=== PATIENT | female | born 2000 | race Caucasian/White ===

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

== ENCOUNTER 2022-02-02 10:44 | Emergency (ER) | payer SELFPAY ==
[2022-02-02 11:03] VITALS: BP 123/80; PULSE 110; RESP 16; TEMP 36.3; O2SAT 99; BMI 22.0
--- NOTE | 2022-02-02 11:22 | ED_ITS ---
HPI - Female Genitourinary General: Chief complaint: Abdominal Pain Stated complaint: ABD Pain, Nausia Time Seen by Provider: 02/02/22 11:08 History of Present Illness: Patient presents with discomfort down pelvic area. 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 She has had UTI in past and she said is very consistent with that patient denies any vaginal discharge or pain with intercourse. Patient had a chlamydia test last week and was negative. Patient denies any other problems. She denies any vomiting or fever but she does have some nausea. Associated symptoms: Reports abdominal pain (Lower aspect pelvic); Deny headache(s) or nausea Review of Systems Const: Denies: fever(s), chills or body aches Eyes: Denies: eye discomfort ENMT: Denies: throat pain Card: Denies: chest pain Resp: Denies: dyspnea GI: Reports: abdominal pain (Lower aspect pelvic); Denies: nausea or vomiting : Reports: dysuria, urinary frequency, urinary urgency and oliguria Skin/Breast: Denies: rash Neuro: Denies: headache(s) Psych: Denies: depression or suicidal ideation [facility] ED PFSH: Medical History (Updated 02/02/22 @ 12:33 by JOSÉ MIGUEL Phillips) No pertinent past medical history Surgical History (Updated 06/11/20 @ 13:56 by Rosalee Barlow) No pertinent past surgical history Physical Exam Const: COMMON NORMALS: no acute distress, patient oriented x3 and alert HENMT: COMMON NORMALS: normocephalic and external ears normal HEAD & SCALP: normocephalic EXTERNAL EAR: Yes external ears normal Eye: COMMON NORMALS: EOMs intact bilaterally Neck/C-Spine: COMMON NORMALS: no JVD Resp: COMMON NORMALS: normal respiratory effort and No use of accessory muscles Cardio: COMMON NORMALS: no JVD GI: INSPECTION: Yes normal to inspection OTHER: Tenderness in lower abdomen pelvic area. Extremity: COMMON NORMALS: normal to inspection and full ROM Neuro: COMMON NORMALS: patient oriented x3 SENSORIUM/ORIENTATION: Yes alert Psych: COMMON NORMALS: mental status grossly normal Skin: COMMON NORMALS: no rashes or lesions noted GENERAL SKIN EXAM: no rashes or lesions noted Course Vital Signs: Vital signs: Vital Signs Temperature 97.4 F L 02/02/22 11:03 Pulse Rate 110 H 02/02/22 11:03 Respiratory Rate 16 02/02/22 11:03 Blood Pressure 123/80 02/02/22 11:03 Pulse Oximetry 99 02/02/22 11:03 MDM - Female Medical Decision Making Uncomplicated UTI Lab Data Laboratory Results HCG, Qual Negative (Negative) 02/02/22 11:32 Urine Color Yellow (Yellow) 02/02/22 11:32 Urine Appearance Hazy (CLEAR) A 02/02/22 11:32 Urine pH 5 (5-7) 02/02/22 11:32 Ur Specific [place] 1.025 (1.005-1.030) 02/02/22 11:32 Urine Protein Neg (Negative) 02/02/22 11:32 Urine Glucose (UA) Norm (Normal) 02/02/22 11:32 Urine Ketones Negative (Negative) 02/02/22 11:32 Urine Blood Neg (Negative) 02/02/22 11:32 Urine Nitrate Negative (Negative) 02/02/22 11:32 Urine Bilirubin Neg (Negative) 02/02/22 11:32 Urine Urobilinogen Norm mg/dL (Negative) 02/02/22 11:32 Ur Leukocyte Esterase 2+ (Negative) H 02/02/22 11:32 Urine RBC None /hpf (0-2) 02/02/22 11:32 Urine WBC 55-80 /hpf (0-5) H 02/02/22 11:32 Ur Squamous Epith Cells 15-25 /hpf (0-5) H 02/02/22 11:32 Ur Transition Epith Cell 0-4 /hpf 02/02/22 11:32 Amorphous Sediment Not Reportable 02/02/22 11:32 Urine Bacteria 4+ /hpf (NONE) H 02/02/22 11:32 Urine Mucus 1+ /hpf 02/02/22 11:32 Discharge Plan Discharge Patient Disposition: Home Clinical Impression: UTI (urinary tract infection) Condition: Stable Prescriptions: New fosfomycin tromethamine 3 gram packet 1 packet PO ONCE Qty: 1 0RF Discharge Orders: Discharge ED (Routine); Ordered 02/02/22 Ordered By: Felix Francisco Discharge Diet: Usual diet Discharge Activity: Increase activity as tolerated Patient Instructions: Urinary Tract Infection in Women (DC) Activity Restrictions/Additional Instructions: Follow-up with medical provider as directed. Take medications as prescribed. Return to the ER or your medical provider if condition worsens. Please read and understand discharge instructions. If any questions ask please. Follow-up in 1 week at your primary care provider office. And repeat urine sample to make sure that your infection is cleared up. Stand Alone Forms: Work/School Release Coding Level of Care Code ED Farm Operator for Abram Fwd Exam Comprehensive
[2022-02-02 11:43] LABS: HCG Qualitative Urine. Negative (Negative)
[2022-02-02 12:15] LABS: Add Urine Microscopic? YES; Bilirubin Urine Neg (Negative); Blood Urine Neg (Negative); Glucose Urine UA Norm (Normal); Ketones Urine Negative (Negative); Leukocyte Esterase Urine 2+ (Negative); Nitrate Urine Negative (Negative); Protein Urine Neg (Negative); Specific Gravity, Urine 1.025 (1.005-1.030); Urine Appearance Hazy (CLEAR); Urine Color Yellow (Yellow); Urobilinogen Urine Norm (Negative); pH Urine 5 (5-7)
[2022-02-02 12:16] LABS: Bacteria Urine 4+ /hpf; Squamous Epithelial Cell Urine 15-25 /hpf (0-5); Transitional Epi Cells Urine 0-4 /hpf; WBC Urine 55-80 /hpf (0-5)
[2022-02-02 12:17] LABS: Add Urine Culture? No; Mucus Urine 1+ /hpf
[2022-02-02 13:12] VITALS: BP 122/80; PULSE 88; RESP 16; O2SAT 99
== END 2022-02-02 13:16 | disposition home or self-care (01) ==
PROVIDERS: Emergency Provider Nurse Practitioner Family
DX: N39.0 Urinary tract infection, site not specified (principal)
CPT/HCPCS: 81001; 81025; 87491; 87591; 99282

== ENCOUNTER 2023-02-07 15:36 | Emergency (ER) | payer BC, MEDICAID, SELFPAY ==
[2023-02-07 15:59] VITALS: BP 118/80; PULSE 93; RESP 15; TEMP 36.7; O2SAT 99; BMI 26.7
--- NOTE | 2023-02-07 17:27 | ED_ITS ---
Documented by User: Chris Fletcher DO 02/08/23 09:09 HPI - Female Genitourinary General: Chief complaint: Urogenital-Female Stated complaint: pelvic pain Time Seen by Provider: 02/07/23 17:27 Source: patient Mode of arrival: ambulatory History of Present Illness: 22-year-old female presents to the emergency room with complaints of pelvic pain and discomfort. She had previously been on oral contraceptives she stopped it because she did not like the way it made her felt. She had seen her doctor who encouraged her to continue she seen another doctor today and they wrote a prescription for a different oral contraceptive. She has been off the initial 1 for approximately 4 to 5 days she began to have cramping and bleeding. She does not believe she is likely to be . Patient does report a history of polycystic ovarian syndrome. No fever sweats chills no abnormal vaginal discharge. MD elicited complaint: vaginal bleeding and pelvic pain Onset (ago): day(s) Severity: mild Female Urogenital Radiation: Non-Radiating Quality of pain: cramping Consistency: intermittent Vaginal discharge: none Vaginal bleeding: moderate Urinary symptoms: Dysuria, Flank Pain, Frequency and Urgency Exacerbating factors: none Relieving factors: none Associated symptoms: Reports nausea; Deny abdominal pain, short of breath, fevers/chills, headache(s), rash, seizu res, syncope, vaginal bleeding, vaginal discharge or weakness Treatment prior to arrival: none Review of Systems Const: Denies: fever(s), chills, body aches, change in appetite, fatigue or malaise ENMT: Denies: throat pain, ear or mastoid pain, nasal discharge or nasal congestion Card: Denies: syncope Resp: Denies: dyspnea, productive cough or non-productive cough GI: Reports: nausea; Denies: abdominal pain : Denies: vaginal discharge Skin/Breast: Denies: rash or pruritus Neuro: Denies: headache(s) PFSH ED PFSH: Medical History No pertinent past medical history Surgical History No pertinent past surgical history Family History Denies family history of Cervical cancer Colon cancer Ovarian cancer Diabetes Breast cancer Hypertension Uterine cancer Thyroid disease Stroke Physical Exam Const: GENERAL APPEARANCE: cooperative and comfortable ORIENTATION/CONSCIOUSNESS: Yes awake, Yes oriented to person, Yes oriented to place and Yes oriented to time HENMT: COMMON NORMALS: normocephalic, atraumatic and hearing grossly normal bilaterally HEAD & SCALP: normocephalic and atraumatic Resp: COMMON NORMALS: normal respiratory effort, No retractions, No use of accessory muscles and clear to auscultation bilaterally AUSCULTATION: clear to auscultation bilaterally Cardio: COMMON NORMALS: regular rate, regular rhythm and No murmurs present (Cardio) RATE: regular rate RHYTHM: regular rhythm GI: COMMON NORMALS: No hepatosplenomegaly present AUSCULTATION: Yes normoactive bowel sounds PALPATION: Yes Tenderness to palpation present (GI) (Mild suprapubic discomfort no guarding or rebound), No Guarding due to palpation present (GI) and Yes No hepatosplenomegaly present : SPECULUM EXAM - VAGINA: No vaginal bleeding OB/EXTERNAL & SPECULUM: No vaginal bleeding Extremity: COMMON NORMALS: normal to inspection, capillary refill normal, no clubbing, cyanosis or edema, no calf tenderness and no pedal edema Neuro: SENSORIUM/ORIENTATION: Yes oriented to person, Yes oriented to place and Yes oriented to time Skin: COMMON NORMALS: no rashes or lesions noted GENERAL SKIN EXAM: no rashes or lesions noted Course Vital Signs: Vital signs: Vital Signs Temperature 98.0 F 02/07/23 15:59 Pulse Rate 85 02/07/23 19:00 Respiratory Rate 16 02/07/23 19:00 Blood Pressure 127/85 02/07/23 19:00 Pulse Oximetry 99 02/07/23 19:00 Oxygen Delivery Ok thod 02/07/23 15:59 [facility] - Female Medical Decision Making Care signed out to Dr. Best at change of shift. See final notes for diagnosis and disposition. 22-year-old female checked out to me by Dr. Fletcher at shift change. This young lady stopped taking control a few days ago, and is having somewhat brisk, significant vaginal bleeding with pelvic cramping. No discharge. She was concerned given the level of bleeding, and the severity of cramping. Her CBC is normal. Hemoglobin is 14. Vitals are normal. She does not have a urinary tract infection. BMP is not remarkable. Liver enzymes are normal. This is likely a withdrawal bleed from stopping her control. She was offered medroxyprogesterone to stop the bleeding, but was told after she stops the medroxyprogesterone, she will have a withdrawal bleed that will be equivalent to the symptoms she is experiencing currently. She declined. She will be allowed discharged follow-up with her primary care Lab Data 02/07/23 18:15 02/07/23 18:15 Laboratory Results WBC 12.2 10^3/uL (4.5-13.0) 02/07/23 18:15 RBC 4.50 10^6/uL (4.1-5.3) 02/07/23 18:15 Hgb 14.0 g/dL (11.5-15.3) 02/07/23 18:15 Hct 41.5 % (37.0-47.0) 02/07/23 18:15 MCV 92.2 fl (81-99) 02/07/23 18:15 MCH 31.1 pg (28.0-34.0) 02/07/23 18:15 MCHC 33.7 g/dL (30.0-36.0) 02/07/23 18:15 RDW 12.2 % (12.1-15.1) 02/07/23 18:15 Plt Count 251 10^3/cmm (130-400) 02/07/23 18:15 MPV 11.2 fL (7.4-10.4) H 02/07/23 18:15 Neut % (Auto) 74.4 % 02/07/23 18:15 Lymph % (Auto) 16.3 % 02/07/23 18:15 Nye % (Auto) 8.6 % 02/07/23 18:15 Eos % (Auto) 0.2 % 02/07/23 18:15 Baso % (Auto) 0.2 % 02/07/23 18:15 Neut # (Auto) 9.06 10^3/uL (1.8-8.0) H 02/07/23 18:15 Lymph # (Auto) 2.0 10^3/uL (1.5-6.5) 02/07/23 18:15 Nye # (Auto) 1.1 10^3/uL (0.2-0.9) H 02/07/23 18:15 Eos # (Auto) 0.0 10^3/uL (0.0-0.8) 02/07/23 18:15 Baso # (Auto) 0.0 10^3/uL (0.0-0.1) 02/07/23 18:15 Nucleated RBC % (auto) 0 % 02/07/23 18:15 Nucleated RBCs # 0.0 /100WBC 02/07/23 18:15 Sodium 140 mmol/L (136-145) 02/07/23 18:15 Potassium 3.6 mmol/L (3.5-5.1) 02/07/23 18:15 Chloride 102 mmol/L (98-107) 02/07/23 18:15 Carbon Dioxide 22 mmol/L (22-29) 02/07/23 18:15 Anion Gap 19.6 (5-19) H 02/07/23 18:15 BUN 5 mg/dL (6-20) L 02/07/23 18:15 Creatinine 0.5 mg/dL (0.5-0.9) 02/07/23 18:15 GFR Calculation 157.3 mL/min (90-130) H 02/07/23 18:15 Glucose 85 mg/dL (65-115) 02/07/23 18:15 Calculated Osmolality 287 mOsm/kg (285-295) 02/07/23 18:15 Calcium 9.7 mg/dL (8.5-10.5) 02/07/23 18:15 HCG, Qual Negative (Negative) 02/07/23 17:21 Urine Color Colorless (Yellow) 02/07/23 19:07 Urine Appearance Clear (CLEAR) 02/07/23 19:07 Urine pH 6 (5-7) 02/07/23 19:07 Ur Specific Dillard 1.005 (1.005-1.030) 02/07/23 19:07 Urine Protein Neg (Negative) 02/07/23 19:07 Urine Glucose (UA) Norm (Normal) 02/07/23 19:07 Urine Ketones 1+ (Negative) H 02/07/23 19:07 Urine Blood Neg (Negative) 02/07/23 19:07 Urine Nitrate Negative (Negative) 02/07/23 19:07 Urine Bilirubin Neg (Negative) 02/07/23 19:07 Prot Sulfosalicylic Acd Cancelled 02/07/23 17:21 Urine Urobilinogen Neg mg/dL (Negative) 02/07/23 19:07 Ur Leukocyte Esterase Negative (Negative) 02/07/23 19:07 Urine RBC Cancelled 02/07/23 17:21 Urine WBC Cancelled 02/07/23 17:21 Ur Squamous Epith Cells Cancelled 02/07/23 17:21 Ur Transition Epith Cell Cancelled 02/07/23 17:21 Ur Renal Epithelial Cell Cancelled 02/07/23 17:21 Calcium Oxalate Crystal Cancelled 02/07/23 17:21 Uric Acid Crystals Cancelled 02/07/23 17:21 Triple Phos Crystals Cancelled 02/07/23 17:21 Other Crystals Cancelled 02/07/23 17:21 Amorphous Sediment Cancelled 02/07/23 17:21 Urine Bacteria Cancelled 02/07/23 17:21 Hyaline Casts Cancelled 02/07/23 17:21 Fine Granular Casts Cancelled 02/07/23 17:21 Coarse Granular Casts Cancelled 02/07/23 17:21 RBC Casts Cancelled 02/07/23 17:21 Other Casts Cancelled 02/07/23 17:21 Urine Mucus Cancelled 02/07/23 17:21 Urine Trichomonas Cancelled 02/07/23 17:21 Urine Yeast Cancelled 02/07/23 17:21 Urine Sperm Cancelled 02/07/23 17:21 Ur Oval Fat Bodies Cancelled 02/07/23 17:21 Discharge Plan Discharge Patient Disposition: Home Clinical Impression: Abnormal vaginal bleeding Condition: Stable Prescriptions: No Action drospirenone-ethinyl estradiol [KENNETH (28)] 3-0.02 mg tablet 1 tab PO DAILY norethindrone ac-eth estradiol [ ()] 1.5-30 mg-mcg tablet 1 tab PO DAILY Qty: 63 6RF Discharge Orders: Discharge ED (Routine); Ordered 02/07/23 Ordered By: Nigel Best Referrals: Marion Gibbs LPN [Primary Care Provider] - Patient Instructions: Abnormal (Dysfunctional) Uterine Bleeding (ED) Activity Restrictions/Additional Instructions: You are experiencing increasing vaginal bleeding because of the withdrawal of the hormones in your control pill. This is almost always self-limited. Return for worsening vaginal bleeding, soaking 1 pad per hour for more than 3 hours, fever greater than 100, vomiting liquids or medications, other concerning symptoms. Follow-up with your doctor. Coding Level of Care Code ED Maintenance Controller for Chg Fwd Documented by User: Nigel Best DO 02/08/23 14:19 HPI - Female Genitourinary General: Chief complaint: Urogenital-Female Stated complaint: pelvic pain Time Seen by Provider: 02/07/23 17:27 [facility] ED PFSH: Medical History No pertinent past medical history Surgical History No pertinent past surgical history Family History Denies family history of Cervical cancer Colon cancer Ovarian cancer Diabetes Breast cancer Hypertension Uterine cancer Thyroid disease Stroke Course Vital Signs: Vital signs: Vital Signs Temperature 98.0 F 02/07/23 15:59 Pulse Rate 85 02/07/23 19:00 Respiratory Rate 16 02/07/23 19:00 Blood Pressure 127/85 02/07/23 19:00 Pulse Oximetry 99 02/07/23 19:00 Oxygen Delivery Me thod 02/07/23 15:59 MDM - Female Medical Decision Making 22-year-old female checked out to me by Dr. Fletcher at shift change. This young lady stopped taking control a few days ago, and is having somewhat brisk, significant vaginal bleeding with pelvic cramping. No discharge. She was concerned given the level of bleeding, and the severity of cramping. Her CBC is normal. Hemoglobin is 14. Vitals are normal. She does not have a urina ry tract infection. BMP is not remarkable. Liver enzymes are normal. This is likely a withdrawal bleed from stopping her control. She was offered medroxyprogesterone to stop the bleeding, but was told after she stops the medroxyprogesterone, she will have a withdrawal bleed that will be equivalent to the symptoms she is experiencing currently. She declined. She will be allowed discharged follow-up with her primary care Lab Data 02/07/23 18:15 02/07/23 18:15 Laboratory Results WBC 12.2 10^3/uL (4.5-13.0) 02/07/23 18:15 RBC 4.50 10^6/uL (4.1-5.3) 02/07/23 18:15 Hgb 14.0 g/dL (11.5-15.3) 02/07/23 18:15 Hct 41.5 % (37.0-47.0) 02/07/23 18:15 MCV 92.2 fl (81-99) 02/07/23 18:15 MCH 31.1 pg (28.0-34.0) 02/07/23 18:15 MCHC 33.7 g/dL (30.0-36.0) 02/07/23 18:15 RDW 12.2 % (12.1-15.1) 02/07/23 18:15 Plt Count 251 10^3/cmm (130-400) 02/07/23 18:15 MPV 11.2 fL (7.4-10.4) H 02/07/23 18:15 Neut % (Auto) 74.4 % 02/07/23 18:15 Lymph % (Auto) 16.3 % 02/07/23 18:15 Nye % (Auto) 8.6 % 02/07/23 18:15 Eos % (Auto) 0.2 % 02/07/23 18:15 Baso % (Auto) 0.2 % 02/07/23 18:15 Neut # (Auto) 9.06 10^3/uL (1.8-8.0) H 02/07/23 18:15 Lymph # (Auto) 2.0 10^3/uL (1.5-6.5) 02/07/23 18:15 Nye # (Auto) 1.1 10^3/uL (0.2-0.9) H 02/07/23 18:15 Eos # (Auto) 0.0 10^3/uL (0.0-0.8) 02/07/23 18:15 Baso # (Auto) 0.0 10^3/uL (0.0-0.1) 02/07/23 18:15 Nucleated RBC % (auto) 0 % 02/07/23 18:15 Nucleated RBCs # 0.0 /100WBC 02/07/23 18:15 Sodium 140 mmol/L (136-145) 02/07/23 18:15 Potassium 3.6 mmol/L (3.5-5.1) 02/07/23 18:15 Chloride 102 mmol/L (98-107) 02/07/23 18:15 Carbon Dioxide 22 mmol/L (22-29) 02/07/23 18:15 Anion Gap 19.6 (5-19) H 02/07/23 18:15 BUN 5 mg/dL (6-20) L 02/07/23 18:15 Creatinine 0.5 mg/dL (0.5-0.9) 02/07/23 18:15 GFR Calculation 157.3 mL/min (90-130) H 02/07/23 18:15 Glucose 85 mg/dL (65-115) 02/07/23 18:15 Calculated Osmolality 287 mOsm/kg (285-295) 02/07/23 18:15 Calcium 9.7 mg/dL (8.5-10.5) 02/07/23 18:15 HCG, Qual Negative (Negative) 02/07/23 17:21 Urine Color Colorless (Yellow) 02/07/23 19:07 Urine Appearance Clear (CLEAR) 02/07/23 19:07 Urine pH 6 (5-7) 02/07/23 19:07 Ur Specific Dillard 1.005 (1.005-1.030) 02/07/23 19:07 Urine Protein Neg (Negative) 02/07/23 19:07 Urine Glucose (UA) Norm (Normal) 02/07/23 19:07 Urine Ketones 1+ (Negative) H 02/07/23 19:07 Urine Blood Neg (Negative) 02/07/23 19:07 Urine Nitrate Negative (Negative) 02/07/23 19:07 Urine Bilirubin Neg (Negative) 02/07/23 19:07 Prot Sulfosalicylic Acd Cancelled 02/07/23 17:21 Urine Urobilinogen Neg mg/dL (Negative) 02/07/23 19:07 Ur Leukocyte Esterase Negative (Negative) 02/07/23 19:07 Urine RBC Cancelled 02/07/23 17:21 Urine WBC Cancelled 02/07/23 17:21 Ur Squamous Epith Cells Cancelled 02/07/23 17:21 Ur Transition Epith Cell Cancelled 02/07/23 17:21 Ur Renal Epithelial Cell Cancelled 02/07/23 17:21 Calcium Oxalate Crystal Cancelled 02/07/23 17:21 Uric Acid Crystals Cancelled 02/07/23 17:21 Triple Phos Crystals Cancelled 02/07/23 17:21 Other Crystals Cancelled 02/07/23 17:21 Amorphous Sediment Cancelled 02/07/23 17:21 Urine Bacteria Cancelled 02/07/23 17:21 Hyaline Casts Cancelled 02/07/23 17:21 Fine Granular Casts Cancelled 02/07/23 17:21 Coarse Granular Casts Cancelled 02/07/23 17:21 RBC Casts Cancelled 02/07/23 17:21 Other Casts Cancelled 02/07/23 17:21 Urine Mucus Cancelled 02/07/23 17:21 Urine Trichomonas Cancelled 02/07/23 17:21 Urine Yeast Cancelled 02/07/23 17:21 Urine Sperm Cancelled 02/07/23 17:21 Ur Oval Fat Bodies Cancelled 02/07/23 17:21 Discharge Plan Discharge Patient Disposition: Home Clinical Impression: Abnormal vaginal bleeding Condition: Stable Prescriptions: No Action drospirenone-ethinyl estradiol [KENNETH (28)] 3-0.02 mg tablet 1 tab PO DAILY norethindrone ac-eth estradiol [ ()] 1.5-30 mg-mcg tablet 1 tab PO DAILY Qty: 63 6RF Discharge Orders: Discharge ED (Routine); Ordered 02/07/23 Ordered By: Nigel Best Referrals: Marion Gibbs LPN [Primary Care Provider] - Patient Instructions: Abnormal (Dysfunctional) Uterine Bleeding (ED) Activity Restrictions/Additional Instructions: You are experiencing increasing vaginal bleeding because of the withdrawal of the hormones in your control pill. This is almost always self-limited. Return for worsening vaginal bleeding, soaking 1 pad per hour for more than 3 hours, fever greater than 100, vomiting liquids or medications, other concerning symptoms. Follow-up with your doctor. Coding Level of Care Code ED Maintenance Controller for Abram Salcedo
[2023-02-07 17:28] VITALS: BP 153/95; PULSE 93; RESP 16; O2SAT 98
[2023-02-07 17:29] LABS: HCG Qualitative Urine. Negative (Negative)
[2023-02-07 18:22] LABS: Basophils % 0.2 %; Eosinophils % 0.2 %; Hematocrit 41.5 % (37.0-47.0); Lymphocytes % 16.3 %; Mean Corpuscular HGB Conc 33.7 g/dL (30.0-36.0); Mean Corpuscular Hemoglobin 31.1 pg (28.0-34.0); Mean Corpuscular Volume 92.2 fl (81-99); Mean Platelet Volume 11.2 fL (7.4-10.4); Monocytes # 1.1 10^3/uL (0.2-0.9); Monocytes % 8.6 %; Neutrophils # 9.06 10^3/uL (1.8-8.0); Neutrophils % 74.4 %; Nucleated Red Blood Cells % 0 %; Platelet Count 251 10^3/cmm (130-400); Red Cell Distribution Width 12.2 % (12.1-15.1); White Blood Count 12.2 10^3/uL (4.5-13.0)
[2023-02-07 18:56] LABS: Anion Gap 19.6 (5-19); Blood Urea Nitrogen 5 mg/dL (6-20); Calcium 9.7 mg/dL (8.5-10.5); Carbon Dioxide 22 mmol/L (22-29); Chloride 102 mmol/L (98-107); Glomerular Filtration Rate 157.3 mL/min (90-130); Glucose 85 mg/dL (65-115); Osmolality Calculated 287 mOsm/kg (285-295); Potassium 3.6 mmol/L (3.5-5.1); Sodium 140 mmol/L (136-145)
[2023-02-07 19:00] VITALS: BP 127/85; PULSE 85; RESP 16; O2SAT 99
[2023-02-07 19:17] LABS: Add Urine Microscopic? NO; Charge for UA Resulting for Rev
[2023-02-07 19:30] LABS: Glucose Urine UA Norm (Normal); Protein Urine Neg (Negative); Specific Gravity, Urine 1.005 (1.005-1.030); Urine Appearance Clear (CLEAR); Urine Color Colorless (Yellow); pH Urine 6 (5-7)
[2023-02-07 19:31] LABS: Bilirubin Urine Neg (Negative); Blood Urine Neg (Negative); Ketones Urine 1+ (Negative); Leukocyte Esterase Urine Negative (Negative); Nitrate Urine Negative (Negative); Urobilinogen Urine Neg (Negative)
== END 2023-02-07 20:22 | disposition home or self-care (01) ==
PROVIDERS: Emergency Medicine; Family Medicine; Emergency Provider Emergency Medicine
DX: N93.9 Abnormal uterine and vaginal bleeding, unspecified (principal); E28.2 Polycystic ovarian syndrome
CPT/HCPCS: 36415; 80048; 81000; 81003; 81025; 85025; 87491; 87591; 87661; 99283

== ENCOUNTER 2023-03-14 12:52 | Emergency (ER) | payer BC, MEDICAID, SELFPAY ==
[2023-03-14 13:38] VITALS: BP 136/72; PULSE 86; RESP 18; TEMP 36.6; O2SAT 100; BMI 26.7
--- NOTE | 2023-03-14 14:02 | XR_ITS ---
WS: [id number] Exam: XR chest 1V portable [id number] Date/Time of Exam: 03/14/2023 2:16 PM Reason For Exam: cough and congestion Comparison 06/07/2006. The lungs are clear and fully inflated. Normal cardiomediastinal silhouette. Bony structures are inta ct. No pleural effusions. XR/XR chest 1V portable [id number] IMPRESSION: 1. Negative chest.
--- NOTE | 2023-03-14 14:20 | W.ED.SOB ---
HPI - SOB/Dyspnea General: Chief Complaint: Shortness of Breath/Dyspnea Stated Complaint: sob Time Seen by Provider: 03/14/23 13:46 History of Present Illness: HPI Narrative: 22-year-old female presents to the emergency department chief complaint of having progressive shortness of breath and chest pressure she was recently diagnosed with started on additional medications for this including an nebulizer and cough medication patient does not report having a known history of heart or lung problems patient does not report smoking she reports having no other associated symptoms. Associated symptoms: Deny abdominal pain, chest pain, extremity pain, fever(s), nausea, palpitations or vomiting Review of Systems General: Reports: 10 or more systems reviewed and unremarkable except in HPI and below Const: Denies: fever(s), chills, fatigue or malaise Eyes: Denies: change in vision or blurry vision Card: Denies: chest pain or palpitations Resp: Reports: dyspnea and productive cough GI: Denies: abdominal pain, nausea or vomiting : Denies: flank pain Musc: Denies: extremity pain or extremity swelling Skin/Breast: Denies: rash or pruritus Neuro: Denies: headache(s) Psych: Denies: anxiety or depression Minesh/Lymph: Denies: easy bleeding All/Imm: Denies: urticaria, throat swelling or facial swelling PFSH ED PFSH: Medical History No pertinent past medical history STI (sexually transmitted infection) Surgical History No pertinent past surgical history Family History Denies family history of Cervical cancer Colon cancer Ovarian cancer Diabetes Breast cancer Hypertension Uterine cancer Thyroid disease Stroke Physical Exam Const: COMMON NORMALS: no acute distress, patient oriented x3 and healthy appearing HENMT: COMMON NORMALS: normocephalic and atraumatic HEAD & SCALP: normocephalic and atraumatic Eye: COMMON NORMALS: Equal, round and reactive pupils present and EOMs intact bilaterally PUPIL: Yes Equal, round and reactive pupils present Neck/C-Spine: COMMON NORMALS: full ROM, supple and no JVD Lymph: LYMPHATIC: no lymphadenopathy noted Chest: COMMONS NORMALS: normal inspection of the chest and normal palpation of entire chest wall Resp: OTHER: Mild expiratory wheezing appreciated bilaterally no obvious retractions noted no obvious rhonchi appreciated no rales noted patient appears in no obvious acute respiratory distress Cardio: COMMON NORMALS: no JVD, regular rate and regular rhythm RATE: regular rate RHYTHM: regular rhythm GI: COMMON NORMALS: Normal to inspection, nondistended, normoactive bowel sounds present, Soft to palpation and non-tender INSPECTION: Yes normal to inspection PALPATION: Yes Soft to palpation : COMMON NORMALS: Yes no CVA tenderness BLADDER/KIDNEY EXAM: Yes no CVA tenderness Back/Pelvis: COMMON NORMALS: no CVA tenderness Extremity: COMMON NORMALS: normal to inspection and full ROM Neuro: COMMON NORMALS: patient oriented x3, CN's II-XII intact bilaterally, moves all extremities and no focal motor deficits Psych: COMMON NORMALS: mental status grossly normal, Normal thought process present, cooperative and normal affect THOUGHT PROCESS: Normal thought process present Skin: COMMON NORMALS: no rashes or lesions noted GENERAL SKIN EXAM: no rashes or lesions noted Course Vital Signs: Vital signs: Vital Signs Temperature 97.8 F 03/14/23 13:38 Pulse Rate 86 03/14/23 13:38 Respiratory Rate 18 03/14/23 13:38 Blood Pressure 136/72 03/14/23 13:38 Pulse Oximetry 100 03/14/23 13:38 Oxygen Delivery Me thod Room Air 03/14/23 13:38 MDM - SOB/Dyspnea Medical Decision Making Due to the patient's symptoms and condition will be doing a chest x-ray currently patient is oxygenation is in the mid 90s in which he appears in no obvious acute respiratory distress patient will undergo education with her inhaler provided to her prior via her primary care doctor which a respiratory spacer also be provided and anticipate discharge home. Lab Data Labs/Radiology: Radiology Impressions Chest X-Ray 03/14/23 14:02 IMPRESSION: 1. Negative chest. Discharge Plan Discharge Patient Disposition: Home Clinical Impression: Acute bronchitis, Upper respiratory tract infection Condition: Stable Prescriptions: New prednisone 20 mg tablet 20 mg PO BID 3 Days Qty: 6 0RF No Action drospirenone-ethinyl estradiol [KENNETH (28)] 3-0.02 mg tablet 1 tab PO DAILY norethindrone ac-eth estradiol [June (21)] 1.5-30 mg-mcg tablet 1 tab PO DAILY Qty: 63 6RF Discharge Orders: Discharge ED (Routine); Ordered 03/14/23 Ordered By: Rod Leos Referrals: EDGAR SOTO [Primary Care Provider] - 4-7 days Discharge Diet: Advance as tolerated Discharge Activity: Increase activity as tolerated Patient Instructions: How to Use a Metered-Dose Inhaler (ED), Acute Bronchitis (ED), Bronchospasm (ED), Wheezing (ED) Activity Restrictions/Additional Instructions: Please follow-up with your primary care doctor in 3 to 5 days, take medication as prescribed please use the spacer with the inhaler at all times we will increase the efficiency of the medication please take the prescription steroids also please return the interim if any of your symptoms persist or worse. Coding Level of Care Code ED Cement Mason Helper for Abram Salcedo
== END 2023-03-14 15:53 | disposition home or self-care (01) ==
PROVIDERS: Emergency Provider Emergency Medicine
DX: J20.9 Acute bronchitis, unspecified (principal); J06.9 Acute upper respiratory infection, unspecified
CPT/HCPCS: 71045; 94664; 99283

== ENCOUNTER → 2023-03-18 09:00 | Outpatient (BNVA) | payer BC, MEDICAID, SELFPAY | PROVIDERS: Visit Provider Obstetrics & Gynecology | DX: Z12.4 Encounter for screening for malignant neoplasm of cervix (principal) | CPT/HCPCS: 88175 ==

== ENCOUNTER 2023-08-25 07:30 | Emergency (ER) | payer MEDICAID, SELFPAY ==
[2023-08-25 07:36] VITALS: BP 127/93; PULSE 90; TEMP 36.8; O2SAT 99; BMI 29.0
--- NOTE | 2023-08-25 07:46 | W.ED.UPPEXIN ---
HPI - Extremity Injury (Upper) General: Stated Complaint: finger laceration Time Seen by Provider: 08/25/23 07:37 Source: patient Mode of arrival: ambulatory History of Present Illness: 22-year-old female with laceration to the left third finger on the palmar side. This occurred yesterday while she was picking up a knife. She presents since today wondering if she needs stitches she is unsure of her last tetanus shot MD complaint: injury to: left Other Extremity Injury: Left: fingers (Fourth) Other injuries: none Handedness: right Place: home Context: laceration Treatments prior to arrival: bandage [facility] ED PFSH: Medical History No pertinent past medical history STI (sexually transmitted infection) Surgical History No pertinent past surgical history Family History Denies family history of Cervical cancer Colon cancer Ovarian cancer Diabetes Breast cancer Hypertension Uterine cancer Thyroid disease Stroke Physical Exam Extremity: OTHER: Palmar aspect of the left third finger irregular laceration no gaping no active bleeding. Patient is able to flex and extend and hold against resistance no evidence of tendon injury MDM - Extremity Injury (Upper) Medical Decision Making Patient refused tetanus shot advised her she should have this done. Wound is not gaping not bleeding its been open for 24 hours no signs of infection allow to heal by secondary intent to clean daily and apply topical antibiotic ointment No radiology studies performed this visit Discharge Plan Discharge Patient Disposition: Home Clinical Impression: Laceration of finger of left hand Condition: Stable Prescriptions: New mupirocin 2 % ointment 1 applic topical DAILY Qty: 15 0RF No Action albuterol sulfate [Ventolin HFA] 90 mcg/actuation HFA aerosol inhaler 1 puff inhalation amoxicillin-pot clavulanate 875-125 mg tablet 1 tab PO Discharge Orders: Discharge ED (Routine); Ordered 08/25/23 Ordered By: Chris Fletcher Referrals: Brian Chavarria FNP [Primary Care Provider] - Discharge Diet: Usual diet Discharge Activity: Increase activity as tolerated Patient Instructions: Laceration (ED), Opioid Safety, Pain Management Activity Restrictions/Additional Instructions: Finger laceration at this point allow to heal by secondary intent apply topical antibiotic ointment and keep bandaged wash daily. We recommended to have a tetanus shot which she declined if you change your mind you can follow-up with health department or with your primary care doctor it is recommended that you have this vaccination since you are unsure of your last tetanus shot. Coding Level of Care Code ED Sponsorship Manager for Abram Salcedo
[2023-08-25 08:00] VITALS: BP 118/75; PULSE 90; O2SAT 98
== END 2023-08-25 07:55 | disposition home or self-care (01) ==
PROVIDERS: Emergency Provider Family Medicine; PCP Nurse Practitioner Family
DX: S61.213A Laceration without foreign body of left middle finger without damage to nail, initial encounter (principal); W26.0XXA Contact with knife, initial encounter
CPT/HCPCS: 99283

== ENCOUNTER → 2023-09-25 13:15 | Outpatient (BNVA) | payer MEDICAID, SELFPAY | PROVIDERS: PCP Nurse Practitioner Family; Visit Provider Nurse Practitioner Women's Health | DX: Z20.2 Contact with and (suspected) exposure to infections with a predominantly sexual mode of transmission (principal); Z11.3 Encounter for screening for infections with a predominantly sexual mode of transmission | CPT/HCPCS: 86803; 87340; 87491; 87529; 87591; 87806 ==

== ENCOUNTER → 2023-11-27 10:00 | Outpatient (BNVA) | payer SELFPAY | PROVIDERS: PCP Nurse Practitioner Family; Visit Provider Nurse Practitioner Family | DX: J06.9 Acute upper respiratory infection, unspecified (principal) | CPT/HCPCS: 87400 ==

== ENCOUNTER 2023-11-28 17:21 | Emergency (ER) | payer SELFPAY ==
[2023-11-28 17:25] VITALS: BP 149/91; PULSE 110; RESP 16; TEMP 36.6; O2SAT 99
[2023-11-28 17:34] VITALS: BP 149/91; PULSE 98; RESP 16; O2SAT 98
--- NOTE | 2023-11-28 17:39 | ED_ITS ---
HPI - URI/Sore Throat General: Chief Complaint: Upper Respiratory Infection Stated Complaint: cough, chest pain Time Seen by Provider: 11/28/23 17:26 Source: patient Mode of arrival: ambulatory Limitations: no limitations History of Present Illness: Patient presents emergency department today accompanied by significant other for evaluation treatment of continued cough and chest tightness. Chart review indicates patient was seen and evaluated yesterday and tested negative for influenza. She reports symptoms at that time having been for 3 to 4 days by that point. She indicates bilateral ear discomfort and sore throat. She states she has not been diagnosed with asthma but feels like she is having tightness in her chest and has a harsh, deep cough. She had a little bit of mucus production the first couple of days she was ill but has been relatively dry since that point. She denies GI symptoms. She was given recommendations for [id number] cough and cold medication yesterday but no prescriptions. Patient states she had been trying some NyQuil/DayQuil but has not taken much as she feels it was not helping. Review of Systems General: Reports: 10 or more systems reviewed and unremarkable except in HPI and below PFSH ED PFSH: Medical History STI (sexually transmitted infection) No pertinent past medical history Surgical History No pertinent past surgical history Family History Denies family history of Cervical cancer Colon cancer Ovarian cancer Diabetes Breast cancer Hypertension Uterine cancer Thyroid disease Stroke Physical Exam Const: COMMON NORMALS: no acute distress, patient oriented x3 and alert HENMT: OTHER: TMs are translucent bilaterally with slight bulging of fluid present but no signs of purulent accumulation. EACs are clear. Pharynx is mildly erythematous without signs of exudate. Mucous membranes are moist and airway is patent. Eye: COMMON NORMALS: Equal, round and reactive pupils present, EOMs intact bilaterally and conjunctivae normal CONJUNCTIVA: Yes conjunctivae normal PUPIL: Yes Equal, round and reactive pupils present Neck/C-Spine: COMMON NORMALS: no JVD Lymph: LYMPHATIC: no lymphadenopathy noted Resp: COMMON NORMALS: normal respiratory effort, No retractions and No use of accessory muscles OTHER: No audible wheezing or rhonchi however, patient does cough in the room and it is very harsh and a little barking in nature. Pulse ox 98% on room air. Cardio: COMMON NORMALS: no JVD and regular rate RATE: regular rate : COMMON NORMALS: Yes no CVA tenderness BLADDER/KIDNEY EXAM: Yes no CVA tenderness Back/Pelvis: COMMON NORMALS: no CVA tenderness, thoracic and lumbar spine normal to inspection and thoraco-lumbar ROM normal Extremity: COMMON NORMALS: normal to inspection, full ROM and no pedal edema Neuro: COMMON NORMALS: patient oriented x3 SENSORIUM/ORIENTATION: Yes alert Skin: COMMON NORMALS: no rashes or lesions noted and turgor normal GENERAL SKIN EXAM: no rashes or lesions noted and turgor normal Course Vital Signs: Vital signs: Vital Signs Temperature 97.8 F 11/28/23 17:25 Pulse Rate 99 11/28/23 18:21 Respiratory Rate 16 11/28/23 18:21 Blood Pressure 149/91 11/28/23 17:34 Pulse Oximetry 99 11/28/23 18:21 Oxygen Delivery Me thod Room Air 11/28/23 18:21 MDM - URI/Sore Throat Medical Decision Making Patient's progression of illness and examination is mostly consistent with bronchitis. She was flu negative yesterday and symptoms do not necessarily correlate with that of flu or COVID, we did hold off on swabbing her for these today. Patient received an albuterol nebulizer treatment here in the emergency department and reports noticeable improvement in how she feels. For that reason, we will treat for bronchitis type illness with albuterol inhaler for home, Medrol Dosepak, Tessalon Perles for cough during the day, and Promethazine DM for cough at night. Patient was given instructions on these medications in her discharge packet. Patient is also given a Z-Nader to hold at the pharmacy should she have change in condition including new onset fever or productive cough of green or yellow sputum. Patient was given return precautions but also recommended follow-up with primary care if issues with recurrent bronchitis or cough occur as she may benefit from further evaluation on an outpatient basis. Differential Diagnosis Likely upper respiratory infection, viral infection, bronchitis and pharyngitis; Unlikely croup, otitis media, sinusitis or influenza No radiology studies performed this visit Discharge Plan Discharge Patient Disposition: Home Clinical Impression: Bronchitis Condition: Stable Prescriptions: New Medrol (Nader) 4 mg tablets,dose pack See Rx Instructions .ROUTE .COMPLEX Qty: 21 0RF Rx Instructions: orally per package directions Ventolin HFA 90 mcg/actuation HFA aerosol inhaler 2 inh inhalation Q4H PRN (Reason: shortness of breath or wheezing) Qty: 8.5 0RF benzonatate 100 mg capsule 100 mg PO TID Qty: 30 0RF promethazine-DM 6.25-15 mg/5 mL syrup 10 ml PO Q6H Qty: 118 0RF Zithromax Z-Nader 250 mg tablet See Rx Instructions PO .COMPLEX Qty: 6 0RF Rx Instructions: For 250 mg dose pack: take 500 mg today (day 1), then 250 mg for 4 days (days 2-5) Discharge Orders: Discharge ED (Routine); Ordered 11/28/23 Ordered By: Gisele Gomez Referrals: Brian Chavarria FNP [Primary Care Provider] - Discharge Diet: Advance as tolerated Discharge Activity: Increase activity as tolerated Patient Instructions: Acute Bronchitis (ED) Activity Restrictions/Additional Instructions: Based on the description of your symptoms and your physical examination today you are most likely dealing with bronchitis. This is a viral illness which causes mucus into the chest and inflammation of the airways causing the issues with recurrent cough. Since you did seem to have improvement with your albuterol nebulizer treatment here in the emergency department I am prescribing you an albuterol inhaler. I want you to use 2 puffs on your inhaler every 4 hours while awake for the next 48 to 72 hours. If you wake up during the night coughing you may use your inhaler at that time but, do not feel the need to set an alarm to wake yourself up to do a treatment. I am also providing you a Medrol Dosepak. The steroid will help with inflammation in your chest which can also help with your cough. I am giving you Tessalon Perles to help you with your cough during the day as the cough syrup I have provided for you causes drowsiness and should only be used before bed. Continue to monitor for any new onset fevers. If you develop a significant productive cough such as green or yellow sputum I have also sent a Z-Nader to the pharmacy to milk pickup driver should you need it. At this time I do not think a Z-Nader/antibiotic will provide you any improvement of your symptoms as I still believe this is an illness primarily of a viral component. If you have any acute worsening we recommend you be seen and reevaluated. If you have issues with recurrent cough or bronchitis we recommend reaching out to your primary care doctor for further evaluation. Coding Level of Care Code ED Regulatory Affairs Strategy Specialist for Abram Salcedo
[2023-11-28] MEDS: albuterol 2.5 mg/3 mL Neb INHALATION (18:19)
[2023-11-28 18:21] VITALS: PULSE 99; RESP 16; O2SAT 99
[2023-11-28 18:41] VITALS: BP 149/91; PULSE 100; RESP 13; O2SAT 97
--- NOTE | 2023-11-29 15:02 | PC.NURSE ---
pt called and requested change in Jason hooker'gabriel Prednisone 20mg, called prescription in to [facility]
== END 2023-11-28 18:42 | disposition home or self-care (01) ==
PROVIDERS: Emergency Provider Physician Assistant; PCP Nurse Practitioner Family
DX: J40 Bronchitis, not specified as acute or chronic (principal)
CPT/HCPCS: 94640; 99283; J7613

== ENCOUNTER 2024-08-21 22:03 | Emergency (ER) | payer SELFPAY ==
[2024-08-21 22:16] VITALS: BP 129/88; PULSE 90; RESP 16; TEMP 36.7; O2SAT 99
--- NOTE | 2024-08-22 00:22 | ED_ITS ---
HPI - Dental/Oral 2 General: Chief complaint: Dental/Oral Stated complaint: Right side dental pain Time Seen by Provider: 08/22/24 00:10 History of Present Illness: Patient is a 23-year-old female that presents to the emergency department with complaints of right sided lower jaw pain. Onset of symptoms in the last 24 hours. Symptoms are localized just to the right lower jaw. Denies fever chills or other complaint. She reports she had difficulty chewing earlier today. She also reports a history of anxiety and became very anxious. She was evaluated by another provider and started on Augmentin. She also took ibuprofen today while waiting in the waiting room. Her symptoms greatly improved. Denies request for evaluation and wants to discharge. Associated symptoms: Denies fever(s) or odynophagia Related Data Previous Rx's Medication Instructions Recorded amoxicillin 875 mg-potassium 1 tab PO BID 7 days #14 tabs 08/21/24 clavulanate 125 mg tablet Allergies Allergy/AdvReac Type Severity Reaction Status Date / Time levofloxacin [From Levaquin] Allergy ADR-Headach Verified 08/21/24 10:35 e Review of Systems 2 General: Reports: 10 or more systems reviewed and unremarkable except in HPI and below Const: Denies: fever(s), chills, change in appetite, change in weight, fatigue or malaise Eyes: Denies: change in vision ENMT: Reports: mouth pain and dental pain; Denies: throat pain or odynophagia Card: Denies: chest pain, palpitations or edema Resp: Denies: dyspnea, productive cough or wheezing GI: Denies: abdominal pain, nausea, vomiting, diarrhea or constipation : Denies: difficulty voiding or dysuria Musc: Denies: neck pain, back pain or extremity swelling Skin/Breast: Denies: rash Neuro: Denies: headache(s), numbness in extremities or weakness in extremities PFS ED 2 PFSH: Medical History (Updated 08/22/24 @ 00:25 by SERGEY Wolff) STI (sexually transmitted infection) No pertinent past medical history Surgical History No pertinent past surgical history Family History Denies family history of Cervical cancer Colon cancer Ovarian cancer Diabetes Breast cancer Hypertension Uterine cancer Thyroid disease Stroke Social History Smoking and tobacco/nicotine status: unknown if used tobacco/nicotine Physical Exam 2 Const: COMMON NORMALS: no acute distress and patient oriented x3 GENERAL APPEARANCE: cooperative and comfortable HENMT: COMMON NORMALS: normocephalic HEAD & SCALP: normocephalic MOUTH: Normal oral and palatal mucosa present TEETH & GINGIVA: Yes other (Dental abscess) TEETH & GINGIVA IMAGES: 1. Tenderness to palpation and erythema Eye: GENERAL EYE: appearance normal, both eyes and all related structures Neck/C-Spine: COMMON NORMALS: no lymphadenopathy Lymph: LYMPHATIC: no lymphadenopathy noted Chest: COMMONS NORMALS: normal inspection of the chest Resp: COMMON NORMALS: normal respiratory effort, No retractions, No use of accessory muscles and clear to auscultation bilaterally EFFORT & INSPECTION: Yes able to speak in complete sentences and Yes symmetric chest movement A USCULTATION: clear to auscultation bilaterally Cardio: COMMON NORMALS: regular rate and regular rhythm PALPATION: normal PMI RATE: regular rate RHYTHM: regular rhythm Neuro: COMMON NORMALS: patient oriented x3 Skin: COMMON NORMALS: no rashes or lesions noted GENERAL SKIN EXAM: no rashes or lesions noted Course 2 Vital Signs: Vital signs: Vital Signs Temperature 98.0 F 08/21/24 22:16 Pulse Rate 90 08/21/24 22:16 Respiratory Rate 16 08/21/24 22:16 Blood Pressure 129/88 08/21/24 22:16 Pulse Oximetry 99 08/21/24 22:16 Oxygen Delivery Me thod Room Air 08/21/24 22:16 MDM - Dental/Oral Medical Decision Making Patient reports he is feeling much better and would like to discharge home. She has pain meds and Augmentin rx No radiology studies performed this visit Discharge Plan Discharge Patient Disposition: Home Clinical Impression: Dental abscess, Toothache Condition: Stable Prescriptions: No Action amoxicillin-pot clavulanate 875-125 mg tablet 1 tab PO BID 7 Days Qty: 14 0RF Discharge Orders: Discharge ED (Routine); Ordered 08/22/24 Ordered By: Pedro Nichols Referrals: Brian Chavarria FNP [Primary Care Provider] - Discharge Diet: Advance as tolerated Discharge Activity: Resume usual activity Patient Instructions: Pain Management Coding Level of Care Code ED Insights Analyst for Abram Salcedo
[2024-08-22 00:49] VITALS: BP 118/80; PULSE 93; O2SAT 98
== END 2024-08-22 00:51 | disposition home or self-care (01) ==
PROVIDERS: Emergency Provider Nurse Practitioner; PCP Nurse Practitioner Family
DX: K04.7 Periapical abscess without sinus (principal); K08.89 Other specified disorders of teeth and supporting structures
CPT/HCPCS: 99281

== ENCOUNTER 2024-09-17 00:03 | Emergency (ER) | payer SELFPAY ==
[2024-09-17 00:10] VITALS: BP 130/89; PULSE 86; RESP 18; TEMP 36.3; O2SAT 99; BMI 29.7
--- NOTE | 2024-09-17 17:06 | W.ED.URI ---
HPI - URI/Sore Throat General: Chief Complaint: Upper Respiratory Infection Stated Complaint: burning sensation in nose Time Seen by Provider: 09/17/24 00:47 Source: patient Mode of arrival: ambulatory Limitations: no limitations History of Present Illness: Patient is a 23-year-old female who presents to the emergency department complaining of nasal irritation and a sore throat beginning today. Denies history of allergies or sick contacts. Has not been running a fever, no shortness of breath, no cough, no other symptoms to report. She states that she has a nasal spray, but has not used this yet. She does report a history of asthma and is out of her albuterol inhaler and is requesting more. Vitals normal at this time. MD elicited complaint: other (Nasal irritation and sore throat) Pertinent past history: asthma Onset (ago): hour(s) Consistency: constant Severity: mild Able to tolerate fluids by mouth: Yes Exacerbating factors: nothing Relieving factors: nothing Associated symptoms: Reports no associated symptoms; Deny abdominal pain, chills, chest pain, diarrhea, ear or mastoid pain, fever(s), headache(s), nausea or vomiting Treatments prior to arrival: none Related Data Previous Rx's Medication Instructions Recorded amoxicillin 875 mg-potassium 1 tab PO BID 7 days #14 tabs 08/21/24 clavulanate 125 mg tablet albuterol sulfate 90 mcg/actuation 1 inh inhalation Q6H PRN shortness 09/17/24 aerosol inhaler of breath or wheezing #6.7 grams cetirizine 10 mg tablet (Zyrtec) 10 mg PO DAILY PRN allergy 09/17/24 symptoms #20 tabs fluticasone propionate 50 2 spray intranasal DAILY PRN 09/17/24 mcg/actuation nasal allergy symptoms #16 grams spray,suspension Allergies Allergy/AdvReac Type Severity Reaction Status Date / Time levofloxacin [From Levaquin] Allergy ADR-Headach Verified 08/21/24 10:35 e Review of Systems General: Reports: 10 or more systems reviewed and unremarkable except in HPI and below Const: Denies: fever(s), chills or fatigue Eyes: Denies: change in vision ENMT: Reports: throat pain and other (Nasal irritation); Denies: ear or mastoid pain or nasal discharge Card: Denies: chest pain, palpitations, swelling of feet/ankles or lightheadedness Resp: Denies: dyspnea, productive cough or wheezing GI: Denies: abdominal pain, nausea, vomiting, diarrhea or constipation : Denies: flank pain, difficulty voiding, dysuria or urinary frequency Musc: Denies: neck pain, back pain or joint pain Skin/Breast: Denies: rash Neuro: Denies: headache(s), numbness in extremities or weakness in extremities PFSH ED PFSH: Medical History STI (sexually transmitted infection) No pertinent past medical history Surgical History No pertinent past surgical history Family History Denies family history of Cervical cancer Colon cancer Ovarian cancer Diabetes Breast cancer Hypertension Uterine cancer Thyroid disease Stroke Social History Smoking and tobacco/nicotine status: unknown if used tobacco/nicotine Female Reproductive History: Date of last menstrual period: 05/23/24 Physical Exam Const: COMMON NORMALS: no acute distress and healthy appearing GENERAL APPEARANCE: cooperative, comfortable and well developed HENMT: COMMON NORMALS: normocephalic, atraumatic, hearing grossly normal bilaterally, external ears normal, EAC's normal, TM's normal bilaterally and Normal nasal mucous membranes and turbinates present HEAD & SCALP: normal to inspection, normocephalic and atraumatic FACE & SINUS: normal facial exam and sinuses nontender NOSE: No nasal polyps present, Normal nasal mucous membranes and turbinates present and Other nasal findings present (Very mild erythema to both nares) EXTERNAL EAR: Yes external ears normal EXTERNAL AUDITORY CANAL: EAC's normal TYMPANIC MEMBRANE: TM's normal bilaterally MOUTH: Normal oral and palatal mucosa present THROAT: posterior oropharynx normal and tonsils normal Eye: COMMON NORMALS: EOMs intact bilaterally, conjunctivae normal and normal visual garcia by confrontation GENERAL EYE: appearance normal, both eyes and all related structures CONJUNCTIVA: Yes conjunctivae normal Neck/C-Spine: COMMON NORMALS: full ROM, no lymphadenopathy and supple GENERAL: Yes normal visual inspection Chest: COMMONS NORMALS: normal inspection of the chest Resp: COMMON NORMALS: normal respiratory effort and clear to auscultation bilaterally EFFORT & INSPECTION: Yes able to speak in complete sentences AUSCULTATION: clear to auscultation bilaterally Cardio: COMMON NORMALS: regular rate, regular rhythm, S1 normal heart sound present and S2 normal heart sound present RATE: regular rate RHYTHM: regular rhythm HEART SOUNDS: S1 normal heart sound present, S2 normal heart sound present, no gallops, no murmurs and no rubs Extremity: COMMON NORMALS: normal to inspection, full ROM and capillary refill normal Skin: COMMON NORMALS: no rashes or lesions noted GENERAL SKIN EXAM: no rashes or lesions noted Course Vital Signs: Vital signs: Vital Signs Temperature 97.4 F L 09/17/24 00:10 Pulse Rate 86 09/17/24 00:10 Respiratory Rate 18 09/17/24 00:10 Blood Pressure 130/89 09/17/24 00:10 Pulse Oximetry 99 09/17/24 00:10 Oxygen Delivery Me thod Room Air 09/17/24 00:10 MDM - URI/Sore Throat Medical Decision Making Patient presents for a couple of minor symptoms beginning today. She denies history of allergies. Her posterior oropharyngeal exam was completely normal, no concern for strep pharyngitis, as she also is noting that the soreness is more of a scratching. This along with the nasal irritation/erythema present as an allergic rhinitis and we will treat for allergies. She is also requesting a refill on her albuterol inhaler, this will be filled as well. Physical exam otherwise completely normal, her vitals have been stable throughout ED stay. No radiology studies performed this visit Discharge Plan Discharge Patient Disposition: Home Clinical Impression: Allergic rhinitis Condition: Stable Prescriptions: New albuterol sulfate 90 mcg/actuation HFA aerosol inhaler 1 inh inhalation Q6H PRN (Reason: shortness of breath or wheezing) Qty: 6.7 0RF fluticasone propionate 50 mcg/actuation spray,suspension 2 spray intranasal DAILY PRN (Reason: allergy symptoms) Qty: 16 0RF Rx Instructions: administer into each nostril cetirizine [Zyrtec] 10 mg tablet 10 mg PO DAILY PRN (Reason: allergy symptoms) Qty: 20 0RF No Action amoxicillin-pot clavulanate 875-125 mg tablet 1 tab PO BID 7 Days Qty: 14 0RF Discharge Orders: Discharge ED (Routine); Ordered 11/01/24 Ordered By: Satnam Oliveros Referrals: Brian Chavarria FNP [Primary Care Provider] - Patient Instructions: Allergies (ED) Activity Restrictions/Additional Instructions: Flonase and Zyrtec for allergies. Albuterol inhaler as prescribed. Follow-up with primary care and return with any new or worsening. Coding Level of Care Code ED Outbound Call Center Representative for Abram Salcedo
== END 2024-09-17 01:20 | disposition home or self-care (01) ==
PROVIDERS: Emergency Provider Physician Assistant; PCP Nurse Practitioner Family
DX: J30.9 Allergic rhinitis, unspecified (principal)
CPT/HCPCS: 99283

== ENCOUNTER 2025-03-20 20:16 | Emergency (ER) | payer SELFPAY ==
[2025-03-20 20:21] VITALS: BP 127/89; PULSE 88; RESP 16; TEMP 36.6; O2SAT 98; BMI 32.1
--- NOTE | 2025-03-20 21:02 | W.ED.FEMALGU ---
HPI - Female Genitourinary General: Chief complaint: Urogenital-Female Stated complaint: vaginal itching and burning Time Seen by Provider: 03/20/25 20:43 History of Present Illness: 24-year-old female with a couple day history of vaginal itching, burning sensation, dysuria, and slight discharge that is white. She used Monistat 3, 1 dose yesterday, without improvement. No fever. No significant abdominal pain. No vomiting or diarrhea. Date of Last Menstrual Period: 01/18/25 Related Data Previous Rx's ?Medication ?Instructions ?Recorded amoxicillin 875 mg-potassium 1 tab PO BID 7 days #14 tabs 08/21/24 clavulanate 125 mg tablet albuterol sulfate 90 mcg/actuation 1 inh inhalation Q6H PRN shortness 09/17/24 aerosol inhaler of breath or wheezing #6.7 grams cetirizine 10 mg tablet (Zyrtec) 10 mg PO DAILY PRN allergy 09/17/24 symptoms #20 tabs fluticasone propionate 50 2 spray intranasal DAILY PRN 09/17/24 mcg/actuation nasal allergy symptoms #16 grams spray,suspension metronidazole 500 mg tablet 500 mg PO BID 7 days #14 tabs 03/20/25 Allergies Allergy/AdvReac Type Severity Reaction Status Date / Time levofloxacin (From Levaquin) Allergy ADR-Headach Verified 08/21/24 10:35 e [facility] ED PFSH: Medical History STI (sexually transmitted infection) No pertinent past medical history Surgical History No pertinent past surgical history Family History Denies family history of Cervical cancer Colon cancer Ovarian cancer Diabetes Breast cancer Hypertension Uterine cancer Thyroid disease Stroke Social History Smoking and tobacco/nicotine status: unknown if used tobacco/nicotine Female Reproductive History: Date of last menstrual period: 01/18/25 Physical Exam Const: COMMON NORMALS: no acute distress GENERAL APPEARANCE: cooperative; not ill appearing and not frail appearing HENMT: COMMON NORMALS: normocephalic, atraumatic and Normal external nose present HEAD & SCALP: normocephalic and atraumatic FACE & SINUS: normal facial exam and face symmetric NOSE: Normal external nose present Eye: COMMON NORMALS: Equal, round and reactive pupils present and EOMs intact bilaterally PUPIL: Yes Equal, round and reactive pupils present Neck/C-Spine: GENERAL: Yes trachea midline Chest: CHEST: Yes Symmetrical chest wall rise Resp: COMMON NORMALS: normal respiratory effort, No retractions, No use of accessory muscles and clear to auscultation bilaterally AUSCULTATION: clear to auscultation bilaterally Cardio: COMMON NORMALS: regular rate and regular rhythm RATE: regular rate RHYTHM: regular rhythm GI: COMMON NORMALS: Normal to inspection, nondistended, normoactive bowel sounds present Extremity: COMMON NORMALS: no pedal edema Neuro: CHRISTA COMA SCALE: document GCS findings [place] coma scale eye opening: Spontaneous Christa coma scale verbal response: Orientated [place] coma scale motor response: Obey commands Christa coma scale total score: 15 SENSORY EXAM: Yes extremities (intact) Psych: COMMON NORMALS: speech normal SPEECH: Yes normal speech Skin: COMMON NORMALS: no rashes or lesions noted GENERAL SKIN EXAM: no rashes or lesions noted Course Vital Signs: Vital signs: Vital Signs Temperature 97.9 F 03/20/25 20:21 Pulse Rate 88 03/20/25 20:21 Respiratory Rate 16 03/20/25 20:21 Blood Pressure 127/89 03/20/25 20:21 Pulse Oximetry 98 03/20/25 20:21 Oxygen Delivery Me thod Room Air 03/20/25 20:21 MDM - Female Medical Decision Making 24-year-old female. She presents with some dysuria vaginal discharge and itching. Wet prep is negative for yeast, positive for clue cells. Urinalysis is equivocal. She will be placed on metronidazole. Outpatient follow-up. Lab Data Laboratory Results Urine Color Yellow (Yellow) 03/20/25 21: Urine Appearance Error (CLEAR) A 03/20/25 21: Urine pH 6.5 (5-7) 03/20/25 21: Ur Specific [place] 1.024 (1.005-1.030) 03/20/25 21: Urine Protein Negative (Negative) 03/20/25 21: Urine Glucose (UA) Negative (Normal) 03/20/25 21: Urine Ketones Trace (Negative) 03/20/25 21:01 Urine Blood Negative (Negative) 03/20/25 21:01 Urine Nitrate Negative (Negative) 03/20/25 21:01 Urine Bilirubin Negative (Negative) 03/20/25 21:01 Urine Urobilinogen 1.0 mg/dL (Negative) 03/20/25 21:01 Ur Leukocyte Esterase 1+ (Negative) A 03/20/25 21: Urine RBC 0-2 /hpf (0-2) 03/20/25 21: Urine WBC 0-5 /hpf (0-5) 03/20/25 21:01 Ur Squamous Epith Cells 0-5 /hpf (0-5) 03/20/25 21: Amorphous Sediment Not Reportable 03/20/25 21: Urine Bacteria None seen /hpf (NONE) 03/20/25 21: Hyaline Casts 0.40 /lpf 03/20/25 21:01 No radiology studies performed this visit Discharge Plan Discharge Patient Disposition: Home Clinical Impression: Bacterial vaginosis Condition: Stable Prescriptions: New metronidazole 500 mg tablet 500 mg PO BID 7 Days Qty: 14 0RF No Action amoxicillin-pot clavulanate 875-125 mg tablet 1 tab PO BID 7 Days Qty: 14 0RF albuterol sulfate 90 mcg/actuation HFA aerosol inhaler 1 inh inhalation Q6H PRN (Reason: shortness of breath or wheezing) Qty: 6.7 0RF fluticasone propionate 50 mcg/actuation spray,suspension 2 spray intranasal DAILY PRN (Reason: allergy symptoms) Qty: 16 0RF Rx Instructions: administer into each nostril cetirizine [Zyrtec] 10 mg tablet 10 mg PO DAILY PRN (Reason: allergy symptoms) Qty: 20 0RF Discharge Orders: Discharge ED (Routine); Ordered 03/20/25 Ordered By: Nigel Best Referrals: Brian Chavarria FNP [Primary Care Provider] - 1-3 days Patient Instructions: Bacterial Vaginosis (ED), Opioid Safety, Pain Management Activity Restrictions/Additional Instructions: Antibiotics as directed. See your doctor in 2 to 3 days if not resolved. Return for new or concerning symptoms. Print Language: Mongolian Coding Level of Care Code ED Shaker Out for Abram Salcedo
[2025-03-20 21:25] LABS: Bacteria Urine None Seen /hpf; RBC Urine 0-2 /hpf (0-2); Squamous Epithelial Cell Urine 0-5 /hpf (0-5); WBC Urine 0-5 /hpf (0-5)
[2025-03-20 21:26] LABS: Bilirubin Urine Negative (Negative); Blood Urine Negative (Negative); Glucose Urine UA Negative (Normal); Ketones Urine Trace (Negative); Leukocyte Esterase Urine 1+ (Negative); Nitrate Urine Negative (Negative); Protein Urine Negative (Negative); Specific Gravity, Urine 1.024 (1.005-1.030); Urine Appearance Error (CLEAR); Urine Color Yellow (Yellow); pH Urine 6.5 (5-7)
== END 2025-03-20 22:17 | disposition home or self-care (01) ==
PROVIDERS: Emergency Provider Emergency Medicine; PCP Nurse Practitioner Family
DX: N76.0 Acute vaginitis (principal)
CPT/HCPCS: 81001; 87210; 99283